=== PATIENT | female | born 1970 | race Caucasian/White ===

== ENCOUNTER 2016-06-01 19:20 | Emergency (ER) | payer SELFPAY ==
[~2016-06-01 19:20] MED LIST: ACETAMINOPHEN325 M3 PO; ADDERALL 10 MG10 M2 PO; AMITIZA8 MCG PO; BUPROBAN150 MG PO; BUPROPION HCL150 M3 PO; CELEXA40 M1 PO; CELEXA40 MG PO; CITALOPRAM HBR40 M1 PO; CLINDAMYCIN HC300 M2 PO; CLONAZEPAM0.5 M2 PO; CYCLOBENZAPRINE10 M1 PO; DEPAKOTE250 MG; DEPAKOTE500 MG; DICLOFENAC POTA50 M1 PO; DIFLUCAN100 MG PO; EFFEXOR XR150 MG; ENALAPRIL MALEA10 MG; FIORICET W/CODE1 CAP PO; GUAIFEN-CODEIN120 ML PO; HYDROCODON-ACE1 EA16 PO; IBUPROFEN200 M2 PO; IBUPROFEN200 M3 PO; KEFLEX500 MG PO; KLONOPIN0.5 M1 PO; LAMICTAL25 M2 PO; LATUDA40 MG PO; LISINOPRIL-HCT1 EACH PO; LISINOPRIL-HCTZ PO; LISINOPRIL/HCTZ; LORTAB 5-325 M1 EAC1 PO; MAGNESIUM CITR296 ML PO; MOTRIN800 MG PO; MYCOSTATIN100 K U/ML PO; NAPROSYN500 M1 PO; NORCO 10-325 T1 EACH PO; NORCO 5-325 TA1 EACH PO; NORCO 5/325 TAB1 TAB PO; PEPCID20 MG PO; PREDNISONE10 M1 PO; PREDNISONE20 MG PO; PRILOSEC20 MG PO; PRILOSEC40 M1 PO; PRISTIQ ER50 MG PO; PROVIGIL200 MG; SEROQUEL400 MG; STRATTERA60 MG; TRIAMCINOLONE A15 G1 TOP; VICODIN ES TABL1 TAB PO; WAL-PROFEN200 MG; WELLBUTRIN SR150 M2 PO; WELLBUTRIN SR150 MG PO; WELLBUTRIN SR200 M2 PO; XANAX0.5 M1 PO; XANAX1 MG PO; [UNRECOGNIZED DRUG - OTHER] PO
[2016-06-01] MEDS ORDERED: NORCO 7.5-3251 EACH PO (19:42)
[2016-06-01] MEDS ORDERED: PREDNISONE10 M1 PO (19:44)
[2016-06-06] MEDS ORDERED: CYCLOBENZAPRINE10 M1 PO (11:12)
[2016-06-06] MEDS ORDERED: NORCO 7.5-3251 EACH PO (11:12)
== END 2016-06-01 19:52 ==
LOC: EDMED 19:20
DX: M75.52 Bursitis of left shoulder (principal); I10 Essential (primary) hypertension

== ENCOUNTER 2016-06-06 11:19 | Emergency (ER) | payer SELFPAY ==
[~2016-06-06 11:19] MED LIST changes: +NORCO 7.5-3251 EACH PO
== END 2016-06-06 11:20 ==
LOC: EDMED 11:19
DX: M75.52 Bursitis of left shoulder (principal); M54.5 Low back pain; Z88.2 Allergy status to sulfonamides; Z88.5 Allergy status to narcotic agent; Z98.890 Other specified postprocedural states; F17.210 Nicotine dependence, cigarettes, uncomplicated
CPT/HCPCS: J1040; J1170; J2360

== ENCOUNTER 2016-08-09 15:31 | Emergency (ER) | payer SELFPAY ==
[2016-08-09] MEDS ORDERED: PRILOSEC OTC20 M1 PO (17:40)
[2016-08-09 18:32] LABS: PREGNANCY-SERUM NEGATIVE (NEGATIVE)
[2016-08-09 18:36] LABS: ALB/GLOB RATIO 1.1 (0.8-2.0); ALKALINE PHOSPHATASE 75 U/L (33-138); ALT/SGPT 29 U/L (12-78); ANION GAP 16 mmol/L (0-20); AST/SGOT 18 U/L (10-40); BILIRUBIN,TOTAL 0.3 mg/dl (0-1.5); CALCIUM 9.2 mg/dl (8.5-10.5); CARBON DIOXIDE-VENOUS 23 mmol/L (22-32); CHLORIDE 106 mmol/l (96-110); CREATININE 0.78 mg/dl (0.50-1.10); GLUCOSE 95 mg/dL (70-110); LIPASE 165 U/L (73-393); POTASSIUM 4.4 mmol/L (3.7-5.1); SODIUM 141 mmol/L (135-145); eGFR VALUE FOR BLACK >90 mL/Min
[2016-08-09] MEDS ORDERED: PROTONIX40 M2 PO (18:47)
[2016-08-09 18:54] LABS: BLOOD UREA NITROGEN 18 mg/dl (6-24)
== END 2016-08-09 19:02 ==
LOC: EDMED 15:31
PROVIDERS: Emergency Medicine
DX: K29.70 Gastritis, unspecified, without bleeding (principal); I10 Essential (primary) hypertension; K21.9 Gastro-esophageal reflux disease without esophagitis; F32.9 Major depressive disorder, single episode, unspecified; F41.9 Anxiety disorder, unspecified; Z98.51 Tubal ligation status; Z90.89 Acquired absence of other organs; F17.200 Nicotine dependence, unspecified, uncomplicated